=== PATIENT | male | born 1990 | race Caucasian/White ===

== ENCOUNTER 2017-01-09 07:21 | Emergency (ER) | payer OTHER ==
[~2017-01-09] VITALS: Ht 182.9 cm; Wt 77.2 kg
[2017-01-09 07:23] VITALS: BP 129/78
[2017-01-09] MEDS ORDERED: PRED20TA PO (07:27)
[2017-01-09] MEDS ORDERED: PRED10TA2 PO (07:27)
[2017-01-09] MEDS ORDERED: ONDANSETRON 4 MG ORAL DISINTEGRATING TAB (S0181) PO ONE (08:00)
[2017-01-09] MEDS ORDERED: ZOFR4TAB3 PO (08:14)
== END 2017-01-09 08:20 | disposition home or self-care (01) ==
LOC: M ED 07:21
DX: R11.2 Nausea with vomiting, unspecified (principal); R19.7 Diarrhea, unspecified; Z87.891 Personal history of nicotine dependence